=== PATIENT | female | born 1995 | race Caucasian/White ===

== ENCOUNTER 2022-06-29 12:27 | Emergency (ER) | payer BC ==
[~2022-06-29] VITALS: Ht 160 cm; Wt 100.0 kg
[2022-06-29 12:36] VITALS: TEMP 98.6
[2022-06-29] MEDS ORDERED: ROXICODONE 55 MG/TAB PO (15:06)
[2022-06-29] MEDS ORDERED: CRUTCHES MC (15:13)
[2022-06-29 15:20] VITALS: BP 121/84; PULSE 96
== END 2022-06-29 15:20 | disposition home or self-care (01) ==
LOC: COL.ER 12:27
DX: S92.354A Nondisplaced fracture of fifth metatarsal bone, right foot, initial encounter for closed fracture (principal); X58.XXXA Exposure to other specified factors, initial encounter; Y93.01 Activity, walking, marching and hiking